=== PATIENT | female | born 1970 | race Caucasian/White ===

== ENCOUNTER → 2017-11-15 | Outpatient (CLI) | payer OTHER ==
--- NOTE | 2017-11-15 16:05 | RAD ---
Right foot, 3 views, 11/15/2017: History: Displaced fracture No previous foot radiographs are available at this time for comparison purposes. There is an oblique fracture of the distal fifth metatarsal shaft. There is only slight medial displacement and angulation of the distal fracture fragment. No callus formation is evident. Mild deformity of the first metatarsal head medially suggests prior bunion type surgery. There is moderate diffuse subcutaneous edema about the foot. IMPRESSION: Recent fifth metatarsal fracture as described above.
== END | disposition home or self-care (01) ==
LOC: DXRAD 13:53
PROVIDERS: ATTEND Orthopaedic Surgery Sports Medicine
DX: S92.351D Displaced fracture of fifth metatarsal bone, right foot, subsequent encounter for fracture with routine healing (principal); X58.XXXD Exposure to other specified factors, subsequent encounter
CPT/HCPCS: 73630